=== PATIENT | male | born 1975 | race Caucasian/White ===

== ENCOUNTER 2018-07-01 09:14 | Day surgery (SDC) | payer BC ==
[2018-06-25 17:36] VITALS: BMI 33.5
[2018-07-01] MEDS ORDERED: MIDAZOLAM HCL 2 MG/2 ML SINGLE DOSE VIAL ONE (10:47)
[2018-07-01] MEDS ORDERED: PROPOFOL 20 ML ONE ×2 (10:51→11:25)
[2018-07-01] MEDS ORDERED: PROMETHAZINE HCL 25 MG/1 ML VIAL IVPUSH PRN (11:48)
[2018-07-01] MEDS ORDERED: oxyCODONE HCL 5 MG TABLET PO PRN ×2 (11:48)
[2018-07-01] MEDS ORDERED: ONDANSETRON 4 MG/2 ML VIAL IVPUSH PRN (11:48)
[2018-07-01] MEDS ORDERED: oxyCODONE HCL 5 MG TABLET PO ONE (12:10)
[2018-07-01 12:40] VITALS: TEMP 97.6
[2018-07-01 14:19] VITALS: BP 137/102; PULSE 87
--- NOTE | 2018-07-02 09:36 | OP ---
DATE OF OPERATION: 07/01/2018 PREOPERATIVE DIAGNOSES: 1. Right carpal tunnel syndrome. 2. Right flexor tenosynovitis, possible inflammatory arthropathy. OPERATIVE PROCEDURE: 1. Right flexor tenosynovectomy at wrist, with tenosynovial biopsy. 2. Right carpal tunnel release. SURGEON: Omid Ram MD SAMPLE PASTER: ASHLYN Childress ANESTHESIA: Local with sedation. COMPLICATIONS: None. ESTIMATED BLOOD LOSS: Minimal. SPECIMENS SENT: Flexor tenosynovium. DESCRIPTION OF PROCEDURE: After proper identification of the patient and the correct operative site, patient was brought to the operating room and placed supine on the operating table with all prominences well padded. Sedation and local anesthesia were given. Right upper extremity was prepped and draped in the usual sterile fashion. Well-padded tourniquet was placed over the sterile prep. Esmarch bandage used to exsanguinate the right upper extremity, and tourniquet was inflated to 250 mmHg. A longitudinal incision was made in the proximal aspect of the palm and was extended in a zig-zag fashion about 2 cm into the volar forearm. Incision was taken sharply through the skin with blunt dissection to subcutaneous tissues. Antebrachial fascia was divided. Transverse carpal ligament was divided. There was significant bulging of the contents of the carpal canal, with significant flexor tenosynovitis. The median nerve was narrowed at this area, enlarged proximally. The median nerve was carefully protected, and the tenosynovectomy was performed of the flexor tendons, and specimen was sent for pathological evaluation. Wound was irrigated with copious amounts of normal saline and repaired with 5-0 fast-absorbing plain gut suture. Sterile dressings were applied. Patient was reversed from anesthesia and brought to recovery room in stable condition. Jarek Sharma, the medical billing assistant, was integral throughout the procedure, and this procedure could not have been performed without a skilled operative medical billing assistant due to the delicate nature of operating and doing a tenosynovectomy around the median nerve in this area. OMID RAM M.D. LORNE/[id number]
--- NOTE | 2018-07-03 18:21 | PATH ---
Surgical Pathology Report Patient Name: AN ARANA [facility]. Rec. #: [id number] /Age/Gender: 1975 (Age: 43) / M Account: [id number] Location: [facility] Taken: 07/01/2018 Received: 07/01/2018 Reported: 07/03/2018 Physicians: Cj Neil M.D. Specimen(s) Received RIGHT FLEXOR TENOSYNOVIAL BIOPSY Clinical History Right carpal tunnel syndrome, tenosynovitis, possible inflammatory arthritis Final Diagnosis FLEXOR TENOSYNOVIAL, RIGHT, BIOPSY: FIBROSYNOVIAL TISSUE WITH FIBRINOUS EXUDATE, CHRONIC INFLAMMATION, AND REACTIVE CHANGES CONSISTENT WITH TENOSYNOVITIS. Electronically Signed Corina Brink M.D. Gross Description Received in formalin labeled "right flexor tenosynovial biopsy," is a 1.6 x 0.6 x 0.3 cm lizama portion of soft tissue, consistent with tenosynovium. The specimen is submitted in toto in one cassette. /07/02/2018 [facility]07/02/2018
== END 2018-07-01 14:21 | disposition home or self-care (01) ==
LOC: FASU 09:14
PROVIDERS: ATTEND Orthopaedic Surgery Hand Surgery
PROC: 01N50ZZ Release Median Nerve, Open Approach (ICD-10-PCS; 2018-07-01)
PROC: 0LB50ZZ Excision of Right Lower Arm and Wrist Tendon, Open Approach (ICD-10-PCS; principal; 2018-07-01 11:02)
DX: G56.01 Carpal tunnel syndrome, right upper limb (principal); M65.88 Other synovitis and tenosynovitis, other site
CPT/HCPCS: 88304-TC; 94760